=== PATIENT | female | born 2000 | race African-American/Black ===

== ENCOUNTER 2018-08-03 00:39 | Emergency (ER) | payer OTHER ==
[~2018-08-03] VITALS: Ht 167.6 cm; Wt 63.6 kg
[2018-08-03 00:42] VITALS: BP 108/69; PULSE 75; RESP 16; Ht 167.6 cm; Wt 63.6 kg
--- NOTE | 2018-08-03 01:23 | ERD ---
ER Documentation Chief Complaint Chief Complaint [id number]; FEVER WITH COUGH HPI 18-year-old female, presents to the emergency department, brought in by ambulance, complaining of subjective fever, cough and runny nose for 2 days. The patient denies chest pain, no SOB. No relevant past medical history. ROS All systems reviewed and are negative except as per history of present illness. Medications Home Meds Active Scripts Acetaminophen* (Tylenol*) 325 Mg Tablet, 2 TAB PO Q6 PRN for PAIN AND OR ELEVATED TEMP, #20 TAB Prov:NATI AVILA MD 08/03/18 Ibuprofen* (Motrin*) 400 Mg Tab, 400 MG PO Q6H PRN for PAIN AND OR ELEVATED TEMP, #20 TAB Prov:NATI AVILA MD 08/03/18 Allergies Allergies: Coded Allergies: No Known Allergies (Verified Allergy, Unknown, 08/03/18) PMhx/Soc Medical and Surgical Hx: pt denies Medical Hx, pt denies Surgical Hx Hx Alcohol Use: No Hx Substance Use: No Hx Tobacco Use: No Smoking Status: Never smoker FmHx Family History: No diabetes, No coronary disease Physical Exam Vitals Vital Signs Date Temp Pulse Resp B/P (MAP) Pulse Ox O2 O2 Flow FiO2 Time Delivery Rate 08/03/18 99.6 01:39 08/03/18 99.6 75 16 108/69 100 00:42 (82) Physical Exam Const: No acute distress Head: Atraumatic Eyes: Normal Conjunctiva ENT: Normal External Ears, Nose and Mouth. Neck: Full range of motion. No meningismus. Resp: Mild rhonchi to auscultation bilaterally Cardio: Regular rate and rhythm, no murmurs Abd: Soft, non tender, non distended. Normal bowel sounds Skin: No petechiae or rashes Back: No midline or flank tenderness Ext: No cyanosis, or edema Neur: Awake and alert Psych: Normal Mood and Affect Results 24 hrs Laboratory Tests Test 08/03/18 01:32 08/03/18 01:35 Bedside Urine pH (LAB) 7.0 Bedside Urine Protein (LAB) Negative Bedside Urine Glucose (UA) Negative Bedside Urine Ketones (LAB) Negative Bedside Urine Blood Negative Bedside Urine Nitrite (LAB) Negative Bedside Urine Leukocyte Esterase (L Trace POC Beta HCG, Qualitative NEGATIVE Current Medications Medications Dose Sig/Katherine Start Time Status Last (Trade) Ordered Route PRN Stop Time Admin Dose Reason Admin 650 mg ONCE ONCE 08/03/18 DC 08/03/18 Acetaminophen PO 01:30 01:39 (Tylenol 08/03/18 01:34 Tab) Lorazepam 0.5 mg ONCE ONCE 08/03/18 DC 08/03/18 (Ativan) PO 01:30 01:38 08/03/18 01:34 Patient: LILLIE ANNE : 2000 Age: 18 Sex: F [id number] DOS: 08/03/18 0119 Ordering MD: NATI AVILA MD Location: [facility] Room/Bed: PROCEDURE: Chest 2 views. CLINICAL INDICATION: Fever and cough TECHNIQUE: PA and lateral views of the chest were obtained COMPARISON: None FINDINGS: The lungs are clear. There is no evidence of an effusion or pneumothorax. Cardiac silhouette and mediastinal contours are unremarkable. Pulmonary vasculature appears normal. Regional bones are unremarkable. IMPRESSION: No evidence of active cardiopulmonary disease. Procedures/MDM Differential diagnosis include but not limited to: Respiratory infection bacterial/viral/fungal. Asthma, pneumonitis, allergies, GERD. Less likely foreign body aspiration, cardiac related, aspiration pneumonia, malignancy. Physical examination and clinical presentation consistent most likely with viral syndrome. During the ED course the patient remained stable, no new complaints. Clinical impression discussed with the patient who agrees with management. The patient is stable to be treated outpatient and will be discharged home. antibiotics not indicated at this time. some side effects of prescribed medications (headache, rash, nausea, vomiting, diarrhea, drowsiness, hypertension, interactions with other medications) were reviewed. The patient was instructed to follow up with the primary care provider in the next 48h. If symptoms persist, worsen or new symptoms develop, then patient should return to the ED immediately. Disclaimer: Inadvertent spelling and grammatical errors are likely due to EHR/dictation software use and do not reflect on the overall quality of patient care. Also, please note that the electronic time recorded on this note does not necessarily reflect the actual time of the patient encounter. Departure Diagnosis: Primary Impression: Upper respiratory infection Condition: Stable Additional Instructions: Thank you very much for allowing us to participate in your care. Your health and safety is our top priority at [facility]. The evaluation in the emergency department has been done to rule out an acute emergency, therefore, chronic conditions like malignancy or other diseases have not been evaluated; therefore, you need to follow up with a primary care provider in the next 48h. If symptoms persist, worsen or new symptoms develop, then patient should return to the ED immediately. Call your primary care doctor TOMORROW for an appointment during the next 2-4 days and bring all the information provided. Have prescriptions filled and follow precisely the directions on the label. If the symptoms get worse and your provider is unavailable, return to the Emergency Department immediately. NATI AVILA MD Aug 03, 2018 01:23
[2018-08-03] MEDS ORDERED: ACETAMINOPHEN 325 MG TAB PO ONE (01:30)
[2018-08-03] MEDS ORDERED: LORAZEPAM 0.5 MG TAB PO ONE (01:30)
[2018-08-03] MEDS ORDERED: ACET325T33 PO (02:09)
[2018-08-03] MEDS ORDERED: IBUP-1561 PO (02:09)
== END 2018-08-03 02:35 | disposition home or self-care (01) ==
LOC: FTE 00:39
DX: J06.9 Acute upper respiratory infection, unspecified (principal)
CPT/HCPCS: 71046; 81003; 81025; Z7502; Z7610